=== PATIENT | male | born 1955 | race Caucasian/White ===

== ENCOUNTER 2018-08-26 00:57 | Outpatient (CLI) | payer MEDICARE, SELFPAY ==
[2018-08-26 08:57] LABS: C-Reactive Protein 0.69 mg/dL (0.0-0.3)
[2018-08-27 10:37] LABS: Rheumatoid Factor <8 IU/mL (<12.5)
== END 2018-08-26 01:17 ==
PROVIDERS: PCP Family Medicine; Visit Provider Family Medicine
DX: M13.0 Polyarthritis, unspecified (principal)
CPT/HCPCS: 86140; 86431

== ENCOUNTER 2019-03-25 03:35 | Outpatient (CLI) | payer MEDICARE, SELFPAY ==
[2019-03-25 08:49] LABS: ALT 71 U/L (12-78); AST 132 U/L (15-37); Albumin 3.4 g/dL (3.4-5.0); Alkaline Phosphatase 106 U/L (46-116); Anion Gap 9.7 mmol/L (3-11); BUN 12 mg/dL (7-18); Bilirubin, Total 0.3 mg/dL (0.2-1.0); CO2 27.3 mmol/L (21.0-32.0); CREATININE 0.99 mg/dL (0.70-1.30); Calcium 8.7 mg/dL (8.5-10.1); Calculated LDL 56 mg/dL; Chloride 102 mmol/L (98-107); Cholesterol 134 mg/dL (50-200); Glucose 97 mg/dL (70-100); HDL Cholesterol 63 mg/dL (40-60); Potassium 4.2 mmol/L (3.5-5.1); Sodium 139 mmol/L (136-145); Total Protein 6.9 g/dL (6.4-8.2); Triglyceride 77 mg/dL (30-150)
== END 2019-03-25 03:55 ==
PROVIDERS: PCP Family Medicine; Visit Provider Family Medicine
DX: I10 Essential (primary) hypertension (principal)
CPT/HCPCS: 36415; 80053; 80061; 83721

== ENCOUNTER 2019-07-11 00:06 | Outpatient (CLI) | payer MEDICARE, SELFPAY ==
--- NOTE | 2019-07-11 13:09 | DI.CTLCSR_ITS ---
EXAM: CT CHEST LUNG CANCER SCREEN CLINICAL HISTORY: Screening for lung cancer, Z87.891 TECHNIQUE: Low-dose noncontrast COMPARISON: No exams were available for comparison FINDINGS: The heart size is normal. The aorta is normal in diameter. Coronary artery calcifications are seen . There is no adenopathy, pleural or pericardial effusions. There is minimal linear atelectasis at the inferior lingula. There is a 4 millimeter nodule at the right lower lobe and a 5 x 4 millimeter nodule at the left lower lobe. IMPRESSION: Lung rads category 2, probably benign findings of a 4 millimeter right lower lobe nodule and 5 x 4 millimeter left lower lobe nodule. Follow-up screening examination is recommended in 12 months.
== END 2019-07-11 00:26 ==
PROVIDERS: PCP Family Medicine; Visit Provider Family Medicine
DX: Z12.2 Encounter for screening for malignant neoplasm of respiratory organs (principal); J98.11 Atelectasis; R91.8 Other nonspecific abnormal finding of lung field; Z87.891 Personal history of nicotine dependence
CPT/HCPCS: G0297

== ENCOUNTER 2020-09-24 19:19 | Outpatient (CLI) | payer MEDICARE, SELFPAY ==
--- NOTE | 2020-09-24 12:15 | DI.US_ITS ---
EXAM: US UPPER EXTREMITY VENOUS LT CLINICAL HISTORY: Redness and swelling, r/o UE DVT M79.89 SPFT TISSUE DISORDER TECHNIQUE: GRAYSCALE, COLOR, DOPPLER IMAGING OF THE VENOUS SYSTEM OF THE UPPER EXTREMITY-BILATERAL COMPARISON: No exams were available for comparison FINDINGS: Basilic vein: Patent. Normal color-flow and normal compression and augmentation properties. Brachial vein(s):Patent. Normal color flow. Normal compression and augmentation properties. Cephalic vein:Patent. Normal color flow. Normal compression and augmentation properties. Axillary vein: Patent. Normal color flow. Normal compression and augmentation properties. Visualized subclavian vein: Patent. No obvious intraluminal thrombus. Visualized internal jugular vein: Patent. No obvious intraluminal thrombus. IMPRESSION: 1. No evidence of venous thrombosis in the left upper extremity. 2. There was also no evidence of superficial thrombosis. Sign rib DATA REPOSITORY:
--- NOTE | 2020-09-24 12:15 | DI.RAD_ITS ---
EXAM: XR ELBOW LT COMPLETE CLINICAL HISTORY: LUE swelling, pain on elbow and wrist M79.89 SOFT TISSUE DISORDER. TECHNIQUE: 2D digital imaging was performed. COMPARISON: No exams were available for comparison FINDINGS: There is abundant soft tissue-subcutaneous edema in the visualized lower upper arm and around the elb ow. However, there is no evidence of elbow fracture nor joint effusion. Radial head and neck appear unremarkable as does the capitellum. No loose intra-articular body evident. Epicondyles appear unr emarkable. No radiographic evidence of osteomyelitis. IMPRESSION: DATA REPOSITORY: RADIATION DOSE DELIVERED:
--- NOTE | 2020-09-24 12:15 | DI.RAD_ITS ---
EXAM: XR WRIST LT COMP NAVICULAR CLINICAL HISTORY: Previous wrist surgery, now with UE swelling M79.89 SPFT TISSUE DISORDER. TECHNIQUE: 2D digital imaging was performed. COMPARISON: No exams were available for comparison FINDINGS: There is evidence of previous surgery on the lateral aspect of the wrist with a trapezium implant. I n addition, there is a fixation device noted in the trapezoid. Degenerative cysts are noted in the d istal scaphoid and proximal half of the capitate bone. The appearance of the proximal aspect of the prosthesis is in question. There are no distinct fracture lines. IMPRESSION: DATA REPOSITORY: RADIATION DOSE DELIVERED:
== END 2020-09-24 19:20 ==
LOC: DI 09-27 19:19
PROVIDERS: PCP Family Medicine; Visit Provider Family Medicine
DX: M25.522 Pain in left elbow (principal); M25.532 Pain in left wrist; R22.32 Localized swelling, mass and lump, left upper limb; M79.89 Other specified soft tissue disorders
CPT/HCPCS: 73080; 73110; 93971

== ENCOUNTER 2023-07-16 01:46 | Outpatient (CLI) | payer MEDICARE, SELFPAY ==
[2023-07-16 13:30] LABS: Anion Gap 8.4 mmol/L (3-11); BUN 19 mg/dL (7-18); CO2 30.6 mmol/L (21.0-32.0); CREATININE 1.1 mg/dL (0.70-1.30); Calcium 9.6 mg/dL (8.5-10.1); Chloride 99 mmol/L (98-107); Estimated GFR 73.58 (mL/min/1.73m2); Glucose 140 mg/dL (74-106); Potassium 4.6 mmol/L (3.5-5.1); Sodium 138 mmol/L (136-145)
== END 2023-07-16 01:47 | disposition home or self-care (01) ==
LOC: LBO 01:46
PROVIDERS: Absent Provider Family Medicine; PCP Family Medicine; Visit Provider Family Medicine
DX: I10 Essential (primary) hypertension (principal)
CPT/HCPCS: 36415; 80048

== ENCOUNTER → 2023-12-07 02:54 | Outpatient (CLI) | payer MEDICARE, SELFPAY ==
--- NOTE | 2023-12-07 07:15 | DI.US_ITS ---
Exam(s) US AAA SCREENING EXAM: US AAA SCREENING CLINICAL HISTORY: SCREENING FOR AAA, FORMER SMKER, Z87.891 COMPARISON: No exams were available for comparison FINDINGS: Abdominal Aorta: Proximal: 2.4 x 2.5 cm Mid: 1.8 x 2.1 cm Distal: 1.8 x 2.1 cm Iliac's: Right: 0.8 x 1.0 cm Left: 0.9 x 1.1 cm No significant atherosclerotic disease is seen. IMPRESSION: No evidence of abdominal aortic aneurysm. DATA REPOSITORY:
== END ==
PROVIDERS: PCP Family Medicine; Visit Provider Family Medicine
DX: Z13.6 Encounter for screening for cardiovascular disorders (principal); Z87.891 Personal history of nicotine dependence
CPT/HCPCS: 76706

== ENCOUNTER → 2023-12-29 15:20 | Outpatient (CLI) | payer MEDICARE, SELFPAY ==
--- NOTE | 2023-12-29 15:00 | DI.RAD_ITS ---
Exam(s) XR KNEE LT 3V AP,LAT,JUNIOR EXAM: XR KNEE LT 3V AP,LAT,JUNIOR CLINICAL HISTORY: M17.12 Unilateral primary osteoarthritis, left knee, Likely arthritis. TECHNIQUE: 2D digital imaging was performed. Three views. COMPARISON: No exams were available for comparison FINDINGS: BONES: No acute fracture is present. No bony destructive lesion is seen. JOINTS: The knee is normally aligned. No joint effusion is seen. The joint spaces are maintained. Mi nimal periarticular spurring. SOFT TISSUE: Normal. IMPRESSION: Minimal degenerative changes. DATA REPOSITORY: RADIATION DOSE DELIVERED:
== END ==
PROVIDERS: PCP Family Medicine; Visit Provider Family Medicine
DX: M17.12 Unilateral primary osteoarthritis, left knee (principal)
CPT/HCPCS: 73562

== ENCOUNTER 2024-08-23 07:54 | Outpatient (CLI) | payer MEDICARE, SELFPAY ==
--- NOTE | 2024-08-23 07:45 | RT.EKG_ITS ---
APPROVED REPORT Exam: Resting ECG Reason for Exam: HIGH RISK MEDICATION USE Patient Location: O HR:87 bpm ECG Measurements Heart Rate 87 AXIS SC 167 P 70 QRSd 95 QRS 53 QT 385 T 18 QTc 463 Conclusion Sinus rhythm...normal P axis, V-rate 50- 99 Probable left atrial enlargement...P >50mS, <-0.10mV V1
== END 2024-08-23 07:55 | disposition home or self-care (01) ==
PROVIDERS: PCP Family Medicine; Visit Provider Family Medicine
DX: Z79.899 Other long term (current) drug therapy (principal)
CPT/HCPCS: 93005; 93010

== ENCOUNTER 2025-07-24 01:23 | Outpatient (CLI) | payer MEDICARE, SELFPAY ==
[2025-07-24 08:09] LABS: Cholesterol 191 mg/dL (<200); HDL Cholesterol 53 mg/dL (>or=40)
== END 2025-07-24 01:24 | disposition home or self-care (01) ==
LOC: LBO 01:23
PROVIDERS: PCP Family Medicine; Visit Provider Family Medicine
DX: I10 Essential (primary) hypertension (principal)
CPT/HCPCS: 36415; 80061